=== PATIENT | male | born 1970 | race Caucasian/White ===

== ENCOUNTER 2019-05-15 08:09 | Emergency (ER) | payer MEDICARE ==
[~2019-05-15] VITALS: Ht 198.1 cm; Wt 100.9 kg
[~2019-05-15 08:09] MED LIST: NO HOME MEDS
[2019-05-15 08:15] VITALS: BP 161/117
[2019-05-15 09:03] LABS: CLARITY,URINE CLEAR (Clear); COLOR,URINE YELLOW (Yellow); GLUCOSE, URINE NEGATIVE (Neg); KETONES,URINE NEGATIVE (Neg); LEUKOCYTE ESTERASE ,URINE SMALL (Neg); NITRITES, URINE NEGATIVE (Neg); OCCULT BLOOD,URINE TRACE-INTACT (Neg); PH,URINE 6.5 (4.8-8.0); PROTEIN,URINE NEGATIVE (Neg); UROBILINOGEN,URINE 0.2 E.U/dL (0.2-1.0)
[2019-05-15 09:04] LABS: UA COLLECTION TYPE CLN CATCH MIDSTREAM
[2019-05-15 09:09] LABS: BACTERIA,URINE 2+ /HPF (Neg); MUCUS STRANDS FEW /LPF (Neg); RBC,URINE 0-2 /HPF (0-2); SQUAMOUS EPITHELIAL CELL,UR FEW /LPF (FEW); WBC CLUMPS,URINE FEW /HPF (NEGATIVE)
[2019-05-15] MEDS ORDERED: SULF1TAB49 PO (09:25)
== END 2019-05-15 09:34 | disposition home or self-care (01) ==
LOC: ER 08:09
DX: N39.0 Urinary tract infection, site not specified (principal); Z90.49 Acquired absence of other specified parts of digestive tract; Z98.890 Other specified postprocedural states
CPT/HCPCS: 81001; 87077; 87088; 87186; 99283

== ENCOUNTER 2019-05-15 19:17 | Emergency (ER) | payer MEDICARE ==
[~2019-05-15] VITALS: Ht 198.1 cm; Wt 100.0 kg
[~2019-05-15 19:17] MED LIST changes: +SULF1TAB49 PO
[2019-05-15] MEDS ORDERED: LIDOcaine 2% 10ml TOPICAL JELLY (Urojet) MM ONE (19:30)
[2019-05-15] MEDS ORDERED: dexamethasone sod phosphate 10mg/ml inj IM STA (20:22)
[2019-05-15] MEDS ORDERED: HYDROcodone/acetaminophen 5mg/325mg tablet PO ONE ×2 (20:25→22:30)
[2019-05-15] MEDS ORDERED: ondansetron 4mg rapidly disintigrating tab PO ONE (20:25)
[2019-05-15 21:23] LABS: CLARITY,URINE CLEAR (Clear); COLOR,URINE YELLOW (Yellow); GLUCOSE, URINE NEGATIVE (Neg); KETONES,URINE NEGATIVE (Neg); LEUKOCYTE ESTERASE ,URINE MODERATE (Neg); NITRITES, URINE NEGATIVE (Neg); OCCULT BLOOD,URINE MODERATE (Neg); PROTEIN,URINE NEGATIVE (Neg); UROBILINOGEN,URINE 0.2 E.U/dL (0.2-1.0)
[2019-05-15 21:26] LABS: UA COLLECTION TYPE FOLEY CATH
[2019-05-15 21:30] LABS: BACTERIA,URINE FEW /HPF (Neg); MUCUS STRANDS NONE SEEN /LPF (Neg); RBC,URINE 0-2 /HPF (0-2); SQUAMOUS EPITHELIAL CELL,UR NONE SEEN /LPF (FEW); WBC,URINE 0-4 /HPF (0-4)
[2019-05-15 23:47] VITALS: BP 132/78
== END 2019-05-16 00:15 | disposition short-term general hospital (02) ==
LOC: ER 19:19
DX: N39.0 Urinary tract infection, site not specified (principal); R20.2 Paresthesia of skin; Z90.49 Acquired absence of other specified parts of digestive tract; Z98.890 Other specified postprocedural states; Z79.2 Long term (current) use of antibiotics
CPT/HCPCS: 72100; 81001; 87088; 99285; J1100; 87077; 87186